=== PATIENT | female | born 1995 | race Caucasian/White ===

== ENCOUNTER 2017-06-25 14:57 | Outpatient (CLI) | payer OTHER ==
[2017-06-25 15:38] LABS: BILIRUBIN,URINE NEGATIVE (NEGATIVE); GLUCOSE, URINE (UA) NEGATIVE (NEGATIVE); KETONES,URINE (UA) NEGATIVE (NEGATIVE); LEUKOCYTE ESTERASE, URINE NEGATIVE (NEGATIVE); NITRITE,URINE NEGATIVE (NEGATIVE); OCCULT BLOOD,URINE TRACE-INTA (NEGATIVE); PROTEIN,URINE NEGATIVE (NEGATIVE); UROBILINOGEN,URINE 0.2 (NORMAL) E.U./dL (NORMAL)
[2017-06-25 15:42] LABS: CLARITY,URINE HAZY (CLEAR)
[2017-06-25 15:51] VITALS: BP 122/82
[2017-06-25 16:00] LABS: AMORPHOUS SEDIMENT,UR Moderate /LPF; BACTERIA,URINE Rare /HPF (None Seen); RBC,URINE 0-5 /HPF (0-5); SQUAMOUS EPITHELIAL CELL,UR MOD Squamous (<= Few)
== END 2017-06-25 16:30 | disposition home or self-care (01) ==
LOC: WFO 14:57 → FBP 15:00 → WFO 16:30
PROVIDERS: ATTEND Obstetrics & Gynecology
DX: O99.89 Other specified diseases and conditions complicating pregnancy, childbirth and the puerperium (principal); R10.9 Unspecified abdominal pain; Z3A.23 23 weeks gestation of pregnancy
CPT/HCPCS: 81001; 81003; 87086; 99212

== ENCOUNTER 2017-08-26 08:15 | Outpatient (CLI) | payer OTHER ==
[2017-08-26 09:03] LABS: BILIRUBIN,URINE NEGATIVE (NEGATIVE); GLUCOSE, URINE (UA) NEGATIVE (NEGATIVE); KETONES,URINE (UA) NEGATIVE (NEGATIVE); LEUKOCYTE ESTERASE, URINE NEGATIVE (NEGATIVE); NITRITE,URINE NEGATIVE (NEGATIVE); OCCULT BLOOD,URINE NEGATIVE (NEGATIVE); PH,URINE 8.5 PH (5.0-7.5); PROTEIN,URINE NEGATIVE (NEGATIVE); UROBILINOGEN,URINE 0.2 (NORMAL) E.U./dL (NORMAL)
[2017-08-26 09:16] LABS: BACTERIA,URINE None Seen /HPF (None Seen); CLARITY,URINE HAZY (CLEAR); RBC,URINE 0-5 /HPF (0-5); SQUAMOUS EPITHELIAL CELL,UR MOD Squamous (<= Few)
[2017-08-26 09:17] LABS: MUCUS,URINE Few Strands
[2017-08-26 09:18] LABS: AMORPHOUS SEDIMENT,UR Moderate /LPF
[2017-08-26 10:01] VITALS: BP 104/72
== END 2017-08-26 10:00 | disposition home or self-care (01) ==
LOC: WFO 08:15 → FBP 08:17 → WFO 10:00
PROVIDERS: ATTEND Obstetrics & Gynecology
DX: O46.93 Antepartum hemorrhage, unspecified, third trimester (principal); Z3A.32 32 weeks gestation of pregnancy
CPT/HCPCS: 81001; 87086; 87210; 87220; 87480; 87491; 87510; 87591; 87660; 99213

== ENCOUNTER 2017-09-22 13:38 | Outpatient (CLI) | payer OTHER | END 2017-09-22 13:39 | disposition home or self-care (01) | LOC: LAB.R 13:38 | PROVIDERS: ATTEND Nurse Practitioner Obstetrics & Gynecology | DX: Z36.85 Encounter for antenatal screening for Streptococcus B (principal) | CPT/HCPCS: 87081 ==

== ENCOUNTER 2017-10-04 20:13 | Outpatient (CLI) | payer OTHER ==
[2017-10-04 20:39] VITALS: BP 123/80
== END 2017-10-04 21:15 | disposition home or self-care (01) ==
LOC: WFO 20:13 → FBP 20:14 → WFO 21:15
PROVIDERS: ATTEND Obstetrics & Gynecology
DX: O36.8130 Decreased fetal movements, third trimester, not applicable or unspecified (principal); Z3A.38 38 weeks gestation of pregnancy
CPT/HCPCS: 59025

== ENCOUNTER 2017-10-09 09:17 | Outpatient (CLI) | payer OTHER ==
--- NOTE | 2017-10-09 15:28 | Ultrasound Report ---
OB ULTRASOUND: 10/09/2017 CLINICAL INDICATION: macrosomia. TECHNIQUE: Real-time scanning was performed with marketing sales representative static images obtained. LAST MENSTRUAL PERIOD: 01/11/2017 Clinical Age: 38 weeks 5 days US Age: 38 weeks 4 days EFW Hadlock: 3561 grams EFW% Hadlock: 68% Heart Rate: 139 bpm EDC: 10/18/2017 US EDC: 10/19/2017 BPD Hadlock: 37 weeks 4 days; Mean mm 92 HC Hadlock: 39 weeks 1 day; Mean mm 340 AC Hadlock: 38 weeks 6 days; Mean mm 348 FL Hadlock: 38 weeks 5 days; Mean mm 75 Presentation: cephalic Placental Location: posterior Cervical Length: 3.2 cm Amniotic Fluid: EWA 19.8 cm; MVP 6.6 cm FINDINGS There is a single viable intrauterine gestation, in cephalic presentation. heart rate is 139 BPM. The placenta is posterior, without evidence of previa. Amniotic fluid volume is normal, with an EWA of 19.8. By size, the fetus measures 38 weeks 4 days (38 weeks 5 days by dating provided by the patient). Estimated weight by Hadlock method is 3561 grams, 68th percentile. No free fluid or adnexal lesion is appreciated. IMPRESSION: SINGLE VIABLE INTRAUTERINE GESTATION, WITH SIZE IN KEEPING WITH PROVIDED DATING. ESTIMATED WEIGHT OF 3561 GRAMS, 68TH PERCENTILE. TD: 10/09/2017 11:39 MTDD
== END 2017-10-09 09:18 | disposition home or self-care (01) ==
LOC: DI 09:17
PROVIDERS: ATTEND Obstetrics & Gynecology
DX: Z36.88 Encounter for antenatal screening for fetal macrosomia (principal)
CPT/HCPCS: 76816

== ENCOUNTER 2017-10-13 14:10 | Outpatient (CLI) | payer OTHER ==
[2017-10-13 15:20] VITALS: BP 115/82
--- NOTE | 2017-10-13 16:07 | PROVIDER PROGRESS NOTE ---
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 Also c/o Right SI joint and low back pain and interested in OMT. No contraindications to above. O: VSS/AF RNST with no regular ux contractions, primarily has irritability, Category 1 tracing, single mild contraction documented. Cx 3/50/-3/VTX/BOWI MS: + Right SI joint pain illicited on exam. A/P: No labor. Labor and FKC precautions. F/U routine ob as scheduled. RNST See OMT note below. (OMT Note) Exam: CERVICAL: C3 RR, C1-2 and C4-7 RL THORACIC: SD T1-7 LUMBAR: L3-5 RR PELVIS: R Inominate Anterior Treatment: CERVICAL: HVLA THORACIC: HVLA LUMBAR: HVLA RIGHT INOMINATE: MUSCLE ENERGY RESULTS: SI joint pain and low back pain resolved, marked improvement in thoracic and cervical spine. F/U routine ob as scheduled. Objective - Vital Signs/Intake & Output Vital Signs: Vital Signs x48h Temp Pulse Resp BP Pulse Ox 10/13/17 15:13 36.8 C 97 16 115/82 H 99
== END 2017-10-13 16:00 | disposition home or self-care (01) ==
LOC: WFO 14:10 → FBP 14:11 → WFO 16:00
PROVIDERS: ATTEND Obstetrics & Gynecology
DX: O99.89 Other specified diseases and conditions complicating pregnancy, childbirth and the puerperium (principal); Z3A.39 39 weeks gestation of pregnancy; M79.1 Myalgia
CPT/HCPCS: 99212

== ENCOUNTER 2017-10-16 21:14 | Outpatient (CLI) | payer OTHER ==
[2017-10-16 22:30] VITALS: BP 119/84
--- NOTE | 2017-10-16 22:35 | PROVIDER PROGRESS NOTE ---
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 O: VSS/AF Category 1 tracing, with no contractions on monitor Cx 3/50/-3/VTX/BOWI A/P: Contractions at home, not in labor Labor and FKC precautions F/U Routine ob as scheduled, sooner prn. Objective - Vital Signs/Intake & Output Vital Signs: Vital Signs x48h Temp Pulse Resp BP Pulse Ox 10/16/17 21:35 36.3 C L 20 119/84 H 97 10/16/17 21:30 37.2 C 96 24 120/78 95
== END 2017-10-16 22:36 | disposition home or self-care (01) ==
LOC: WFO 21:14 → FBP 21:15 → WFO 22:36
PROVIDERS: ATTEND Obstetrics & Gynecology
DX: O62.9 Abnormality of forces of labor, unspecified (principal); Z3A.00 Weeks of gestation of pregnancy not specified
CPT/HCPCS: 99213

== ENCOUNTER 2017-10-18 19:53 | Inpatient (IN) | payer OTHER ==
[2017-10-18 20:27] LABS: RUPTURE OF MEMBRANES PLUS POSITIVE (NEGATIVE)
[2017-10-18] MEDS ORDERED: fentaNYL 100 MCG/2 ML VIAL IVP PRN (21:38)
[2017-10-18] MEDS ORDERED: SODIUM CHLORIDE FLUSH 0.9% 10 ML SYRINGE IVP PRN (21:38)
--- NOTE | 2017-10-18 22:02 | HISTORY & PHYSICAL EXAMINATION ---
Chief Complaint - Chief Complaint Chief Complaint: LEAKAGE OF FLUID History of Present Illness - Admitted From Admitted From:: HOME TO [facility] - History Obtained From Records Reviewed: YES History obtained from: PATIENT Exam Limitations: NONE - History of Present Illness HPI Comment/Other: 22 y.o. EDC 10/18/17 40 0/7 weeks with SROM clear at 1855 hours today, with infrequent and mild contractions and CX exam 4/50/BLT/VTX with +forebag and + ROM test and pooling of fluid on bed with clear fluid, admitted for delivery, GBS Neg. PNC Unremarkable PMH: Neg PSH: wisdom teeth, and one other dental removal procedure. SHx: Neg for smoking/etoh/drugs Meds: PNV Allergy: KNDA Labs from OB records: 1 hr gtt 76 RPR NR GC/CT Neg x 2 MBT O Neg PNAS Neg HBSAG Neg Rubella Pos HIV Neg History - Past Medical History Other Past Medical History: NEG - Past Surgical History Other past surgical history: WISDOM TEETH. ONE ADDITIONAL ORAL DENTAL REMOVAL PROCEDURE - Substance History Use: Uses substance without health or social issues: NONE Abuse: Recurrent use of substance despite neg consequences: NONE - POLST POLST Status: Full Code Meds/Allgy - Allergies Allergies/Adverse Reactions: Allergies Allergy/AdvReac Type Severity Reaction Status Date / Time No Known Drug Allergies Allergy Verified 06/25/17 15:58 Review of Systems - All Other Systems All Other Systems: reports: Reviewed and negative (NEGATIVE FOR ALL 14 SYSTEMS ABOVE.) Exam - Vital Signs Vital Signs: Vital Signs x48h Temp Pulse Resp BP Pulse Ox 10/18/17 20:08 37 C 102 H 18 133/89 H 99 - Physical Exam General Appearance: positive: No acute distress, Alert Eyes Bilateral: positive: Normal inspection, PERRL ENT: positive: ENT inspection nml Neck: positive: Nml inspection Respiratory: positive: Chest non-tender, No respiratory distress, Breath sounds nml Cardiovascular: positive: Regular rate & rhythm, No murmur Peripheral Pulses: positive: 2+ Back: positive: Nml inspection Skin: positive: Color nml, No rash, Warm Extremities: positive: Non-tender, Full ROM (CX 4/50/BLT/VTX RNST CATEGORY 1 TRACING, WITH OCCASIONAL MILD CONTRACTION) Core Measures - Anticipated LOS I expect patient to be DC'd or transferred within 96 hours.: Yes - Issues Hospital Issues and Management Plan: IMPRESSION/PLAN: 22 yo 40 0/7 weeks with SROM clear 1855 hours today, Cx 4/50/BLT/VTX and occasional contraction, GBS Neg, Category 1 tracing. Admit for delivery and pitocin augmentation Fentanyl and epidural prn Rhogam candidate Routine admission orders otherwise. - DVT/VTE - Prophylaxis VTE/DVT Device ordered at admit?: No
[2017-10-18 22:07] LABS: BASOPHILS # (AUTO) 0.1 10^3/uL (0.0-0.1); BASOPHILS % (AUTO) 0.7 %; EOSINOPHILS # (AUTO) 0.1 10^3/uL (0.0-0.7); EOSINOPHILS % (AUTO) 0.5 %; HGB - HEMOGLOBIN 11.7 g/dL (12.0-16.0); LYMPHOCYTES # (AUTO) 2.7 10^3/uL (1.5-3.5); LYMPHOCYTES % (AUTO) 18.5 %; MEAN CORPUSCULAR HGB CONC 32.7 g/dL (32.0-36.0); MEAN CORPUSCULAR VOLUME 82.5 fL (81.0-99.0); MEAN PLATELET VOLUME 9.8 fL (7.9-10.8); MONOCYTES # (AUTO) 0.9 10^3/uL (0.0-1.0); MONOCYTES % (AUTO) 6.3 %; NEUTROPHILS # (AUTO) 10.9 10^3/uL (1.5-6.6); PLT - PLATELET COUNT 179 10^3/uL (130-450); RED BLOOD COUNT 4.33 10^6/uL (4.20-5.40); RED CELL DISTRIBUTION WIDTH 13.8 % (12.0-15.0); WHITE BLOOD COUNT 14.8 x10^3/uL (4.8-10.8)
[2017-10-18] MEDS ORDERED: OXYTOCIN/SODIUM CHLORIDE 500 ML IV SCH (23:00)
[2017-10-18] MEDS: LACTATED RINGERS 1,000 ML IV SCH (23:20)
[2017-10-18] MEDS ORDERED: diphenhydrAMINE 25 MG CAPSULE PO PRN (23:57)
[2017-10-19] MEDS ORDERED: SODIUM CHLORIDE FLUSH 0.9% 10 ML SYRINGE IVP SCH (01:00)
[2017-10-19] MEDS ORDERED: ONDANSETRON 4 MG/2 ML VIAL IVP PRN ×2 (02:24→07:26)
[2017-10-19] MEDS ORDERED: fent/BUPIV 2 MCG/0.125% 250 ML EP ONE (02:28)
[2017-10-19] MEDS: LACTATED RINGERS 1,000 ML IV SCH (02:30)
[2017-10-19] MEDS ORDERED: TERBUTALINE 1 MG/ML VIAL SUBQ ONE (04:52)
[2017-10-19] MEDS ORDERED: LIDOCAINE 1% 50 ML MDV ONE (06:58)
[2017-10-19] MEDS ORDERED: OXYTOCIN/SODIUM CHLORIDE 250 ML IV ONE (07:26)
[2017-10-19] MEDS ORDERED: WITCH HAZEL/GLYCERIN 1 EACH MED..PAD TOP PRN (07:26)
[2017-10-19] MEDS ORDERED: RHO(D) IMMUNE GLOBULIN 300 MCG SYRINGE IM ONE (07:26)
[2017-10-19] MEDS ORDERED: MAGNESIUM HYDROXIDE 2,400 MG/30 ML UDC PO PRN (07:26)
[2017-10-19] MEDS ORDERED: METHYLERGONOVINE 0.2 MG/ML AMP IM PRN (07:26)
[2017-10-19] MEDS ORDERED: MEASLES,MUMPS & RUBELLA VACC 0.5 ML VIAL SUBQ ONE (07:26)
[2017-10-19] MEDS ORDERED: TETANUS/DIPHTHERIA/PERTUSSIS 0.5 ML SYRINGE IM ONE (07:26)
--- NOTE | 2017-10-19 07:38 | PROVIDER PROGRESS NOTE ---
Subjective - Prog Note Date Prog Note Date: 10/19/17 Prog Note Time: 07:31 - Subjective Subjective: DELIVERY NOTE: Patient progressed to C/C/+2 at 0504 while off pitocin and with epidural. Ho removed. Patient delivered at 0617 viable 7# 14.1 onz female with 8/9 at 0617 hours. Baby placed on maternal abdomen, cord clamped x 2 and cut after 1 minute. IV pitocin then started, placenta delivered sponteously at 0623. Patient underwent exam of cervix and vagina. Noted to have BL 3" PUL and small 1st degree perineal lac. Local ANS used to repairs lacs. PULs repaired with single running 3-0 monocryl. Perineal lac repaired with 3-0 vicryl in layers/ routine fashion. EBL 400 mL. Mother and baby doing well. SBAR to Dr. 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 Objective - Vital Signs/Intake & Output Intake & Output: Intake & Output 10/16/17 10/17/17 10/18/17 10/19/17 23:59 23:59 23:59 23:59 Intake Total 395.833 Balance 395.833 - Lab Results Fish Bones: 10/18/17 21:57 Other Labs: Lab Results x24hrs 10/18/17 10/18/17 Range/Units 21:57 20:15 WBC 14.8 H (4.8-10.8) x10^3/uL RBC 4.33 (4.20-5.40) 10^6/uL Hgb 11.7 L (12.0-16.0) g/dL Hct 35.7 L (37.0-47.0) % MCV 82.5 (81.0-99.0) fL MCH 27.0 (27.0-31.0) pg MCHC 32.7 (32.0-36.0) g/dL RDW 13.8 (12.0-15.0) % Plt Count 179 (130-450) 10^3/uL MPV 9.8 (7.9-10.8) fL Neut # (Auto) 10.9 H (1.5-6.6) 10^3/uL Lymph # (Auto) 2.7 (1.5-3.5) 10^3/uL [place] # (Auto) 0.9 (0.0-1.0) 10^3/uL Eos # (Auto) 0.1 (0.0-0.7) 10^3/uL Baso # (Auto) 0.1 (0.0-0.1) 10^3/uL Absolute Nucleated RBC 0.00 x10^3/uL Nucleated RBC % 0.0 /100WBC Membranes Rupture POSITIVE A (NEGATIVE)
[2017-10-19] MEDS ORDERED: LACTATED RINGERS 1,000 ML IV SCH (08:00)
[2017-10-19] MEDS: HYDROCORTISONE/PRAMOXINE 10 GM PR PRN (08:26)
[2017-10-19] MEDS: ACETAMINOPHEN 325 MG TABLET PO PRN ×2 (08:30→13:39)
[2017-10-19] MEDS: DOCUSATE SODIUM 100 MG CAPSULE PO SCH ×2 (08:30→21:15)
[2017-10-19] MEDS: IBUPROFEN 800 MG TABLET PO SCH ×2 (08:31→16:42)
[2017-10-19] MEDS ORDERED: SODIUM CHLORIDE FLUSH 0.9% 10 ML SYRINGE ONE (10:14)
--- NOTE | 2017-10-19 13:56 | ANESTHESIA POST OP EVALUATION ---
Anesthesia Post Eval - Post Anesthesia Eval CV Function Including HR & BP: positive: Stable : : : Pain Control: positive: Adequate Nausea & Vomiting: positive: Negative : Mental Status: positive: Appropriate Anesthesia Complications: positive: None, Other (Patient walking w/o difficulty , return of full motor and sensory. Reports she had good pain control with labor. No apparent anestheisa complications.)
[2017-10-19] MEDS: oxyCOD/ACETAMIN 5 MG/325 MG TABLET PO PRN (21:15)
[2017-10-20] MEDS: IBUPROFEN 800 MG TABLET PO SCH ×3 (01:20→17:12)
[2017-10-20] MEDS: oxyCOD/ACETAMIN 5 MG/325 MG TABLET PO PRN (04:23)
[2017-10-20 05:54] LABS: BASOPHILS % (AUTO) 0.2 %; EOSINOPHILS % (AUTO) 0.5 %; HGB - HEMOGLOBIN 9.9 g/dL (12.0-16.0); LYMPHOCYTES # (AUTO) 2.4 10^3/uL (1.5-3.5); LYMPHOCYTES % (AUTO) 24.8 %; MEAN CORPUSCULAR HEMOGLOBIN 27.3 pg (27.0-31.0); MEAN CORPUSCULAR HGB CONC 32.2 g/dL (32.0-36.0); MEAN CORPUSCULAR VOLUME 84.6 fL (81.0-99.0); MEAN PLATELET VOLUME 9.8 fL (7.9-10.8); MONOCYTES # (AUTO) 0.7 10^3/uL (0.0-1.0); MONOCYTES % (AUTO) 7.3 %; NEUTROPHILS # (AUTO) 6.5 10^3/uL (1.5-6.6); NEUTROPHILS % (AUTO) 67.2 %; PLT - PLATELET COUNT 134 10^3/uL (130-450); RED BLOOD COUNT 3.63 10^6/uL (4.20-5.40); RED CELL DISTRIBUTION WIDTH 13.8 % (12.0-15.0); WHITE BLOOD COUNT 9.7 x10^3/uL (4.8-10.8)
--- NOTE | 2017-10-20 08:22 | PROVIDER PROGRESS NOTE ---
Subjective - Prog Note Date Prog Note Date: 10/20/17 Prog Note Time: 08:18 - Subjective Pt reports feeling: Improved Subjective: Patient is feeling much better. Reports pain is controlled with percocet. Denies prior use of vicodin. Ambulating and tolerating a regular diet. Urinating without difficulty. Vaginal bleeding improving, heavy menses. Patient worried about breast feeding. Was having issues with latching and SNS was done yesterday. Tearful about going home and not having help. 's mom and dad coming in to help and will arrive tonight. Objective - Vital Signs/Intake & Output Reviewed Vital Signs: Yes Vital Signs: Vital Signs x48h Temp Pulse Resp BP Pulse Ox 10/20/17 03:48 97.9 F 85 16 104/61 99 Intake & Output: Intake & Output 10/17/17 10/18/17 10/19/17 10/20/17 23:59 23:59 23:59 23:59 Intake Total 2297.133 Output Total 1500 Balance 797.133 - Objective General Appearance: positive: No acute distress Eyes Bilateral: positive: Normal inspection Abdomen: positive: Non-tender (Firm fundus, benign abdomen) Neurologic/Psychiatric: positive: Oriented x3, Other (Anxious affect) - Lab Results Fish Bones: 10/20/17 05:36 Other Labs: Lab Results x24hrs 10/20/17 Range/Units 05:36 WBC 9.7 (4.8-10.8) x10^3/uL RBC 3.63 L (4.20-5.40) 10^6/uL Hgb 9.9 L (12.0-16.0) g/dL Hct 30.7 L (37.0-47.0) % MCV 84.6 (81.0-99.0) fL MCH 27.3 (27.0-31.0) pg MCHC 32.2 (32.0-36.0) g/dL RDW 13.8 (12.0-15.0) % Plt Count 134 (130-450) 10^3/uL MPV 9.8 (7.9-10.8) fL Neut # (Auto) 6.5 (1.5-6.6) 10^3/uL Lymph # (Auto) 2.4 (1.5-3.5) 10^3/uL [place] # (Auto) 0.7 (0.0-1.0) 10^3/uL Eos # (Auto) 0.0 (0.0-0.7) 10^3/uL Baso # (Auto) 0.0 (0.0-0.1) 10^3/uL Absolute Nucleated RBC 0.00 x10^3/uL Nucleated RBC % 0.0 /100WBC Assessment/Plan - Problem List (1) Vaginal delivery Impression: 22 yo S/p 10/19/2017, PPD #1 Normal recovery Difficulty with breast feeding Rh negative-- RhoGam Will change percocet to vicodin consult Routine care Anticipate discharge to home 10/21/2017
[2017-10-20] MEDS: DOCUSATE SODIUM 100 MG CAPSULE PO SCH ×2 (08:50→20:06)
[2017-10-20] MEDS: ACETAMINOPHEN 325 MG TABLET PO PRN (08:50)
[2017-10-20] MEDS: HYDROcod/ACETAM 5/325 MG TABLET PO SCH ×2 (15:26→20:06)
[2017-10-20] MEDS: HYDROCORTISONE/PRAMOXINE 10 GM PR PRN (17:12)
[2017-10-21] MEDS: HYDROcod/ACETAM 5/325 MG TABLET PO SCH ×3 (00:06→11:45)
[2017-10-21] MEDS: IBUPROFEN 800 MG TABLET PO SCH ×2 (00:51→11:44)
[2017-10-21 09:36] VITALS: BP 126/86
[2017-10-21] MEDS: DOCUSATE SODIUM 100 MG CAPSULE PO SCH (11:45)
--- NOTE | 2017-10-21 12:01 | Discharge Plan ---
Discharge Plan Disposition: 01 Home, Self Care Condition: Stable Diet: Regular Activity Restrictions: Activity as Tolerated Shower Restrictions: No Driving Restrictions: No Weight Bearing: Full Weight No Smoking: If you smoke, Please STOP! Call for help. Follow-up with: Bruce Sterling MD [Provider Admit Priv/Credential] -
--- NOTE | 2017-10-21 12:37 | Labor Flowsheet ---
Labor Flowsheet Datetime Report Generated by CPN: 10/21/2017 12:37 Datetime: 10/20/2017 20:16 VITAL SIGNS NBP Sys/Magdalene/Mean (mmHg): 112 : 70 : 80 Pulse: 75 Datetime: 10/19/2017 07:45 SpO2 (%): 99 Datetime: 10/19/2017 06:23 Stage of : Datetime: 10/19/2017 06:17 Stage 2 Comments: head delivered Datetime: 10/19/2017 06:15 LaborFlag: Labor Datetime: 10/19/2017 06:00 UTERINE ACTIVITY Monitor Mode: External Frequency (min): 2-3 Quality: Strong Duration (sec): 50-80 Pattern: Normal: <= 5 Contractions in 10 Minutes Resting Tone (Palpate): Relaxed ASSESSMENT A Monitor Mode: Telemetry FHR Baseline Rate : 135 Variability: Moderate 6-25 bpm Accelerations: 15X15 Decelerations: Variable Category: Category II Oxygen Method: Room Air Datetime: 10/19/2017 05:14 STAGE 2 Pushing: Coached on Pushing; No Urge to Push Pushing Position: Pushing with Contractions Pushing Progress: Descent with Pushing Datetime: 10/19/2017 05:09 Patient Care Comments: 425 ml UO Datetime: 10/19/2017 05:07 I/O Interventions: Ho Discontinued Datetime: 10/19/2017 05:04 VAGINAL EXAM Dilatation (cm): 10.0 Effacement (%): 100 Station: 3 Exam by: Dr. Amina Datetime: 10/19/2017 04:38 COMMUNICATION Communication: Call/Page Placed to Provider Provider Notified (Name): Dr. Amina Datetime: 10/19/2017 04:37 MEDICATIONS Pitocin (milliunits): Discontinued PATIENT CARE IV/Blood Work: IV Bolus Started Oxygen Amount (LPM): 10 Datetime: 10/19/2017 04:30 Pitocin Checklist: At Least 1 Acceleration of 15 bpm x 15 Seconds in 30 Minutes or Adequate Variabi lity; No More than 2 Variable Decelerations > 60 Seconds in Duration and decreasing >60 bpm in 30 min utes; No More than 5 Uterine Contractions in 10 Minutes for any 20 Minute Interval; Uterus Palpates S oft between Contractions Datetime: 10/19/2017 04:28 Patient Position/Activity: Right Lateral Datetime: 10/19/2017 04:14 Vaginal Bleeding: Normal Show Cervix, Consistency: Soft Datetime: 10/19/2017 04:01 Monitor Interventions for FHR: 2-4 Datetime: 10/19/2017 03:08 Anesthesia Level Check: T9 Datetime: 10/19/2017 02:37 ANESTHESIA Anesthesia Plans: Epidural Epidural Positioning: Sitting Epidural Procedure: Test Dose Datetime: 10/19/2017 02:32 Anesthesia Comments: local anesthetic administered Datetime: 10/19/2017 02:20 PROCEDURE TIME OUT Procedure Verify: Correct Patient Identity; Correct Side and Site are Marked; Accurate Procedure Co nsent Form; Agreement on Procedure to be Done; Correct Patient Position; Safety Precautions Based on Patient History or Medication Use Datetime: 10/19/2017 00:59 MATERNAL ASSESSMENT Nausea/Vomiting: Present Datetime: 10/19/2017 00:38 PAIN Pain Scale: 5 Pain Presence: Intermittent Pain Type: Contraction Pain Location: Abdomen Pain Coping: Breathing Through Contractions Datetime: 10/19/2017 00:25 Hygiene: Peripad Changed Datetime: 10/18/2017 23:26 Temperature (C): 36.5
--- NOTE | 2017-10-21 13:05 | DISCHARGE SUMMARY ---
Physician: Bruce Sterling MD DATE OF ADMISSION: 10/18/2017 DATE OF DISCHARGE: 10/21/2017 DIAGNOSES 1. A 40-week gestation, in labor. 2. Spontaneous rupture of membranes. 3. Maternal blood type Rh negative. 4. Nuchal cord not a factor in delivery. PROCEDURE: Vaginal delivery of a living female , (Dr. Argueta) COMPLICATIONS: None. HISTORY: The patient is a 22-year-old primigravida at 40 weeks' gestation, based by dates and ultrasound, who presented with rupture of membranes at 1855 hours on the day of admission. There were mild contractions and initial cervical exam was 4 cm, 50%, and vertex. GBS status was negative. Maternal Rh is also known to be negative. HOSPITAL COURSE: The patient was admitted with a category 1 tracing. Pitocin was begun for augmentation. The patient did not require Pitocin and progressed to complete by 0504 hours. At 0617 hours, a living female infant was born with Apgars of 8/9, weighing 7 pounds 14 ounces. Placenta was delivered intact. There was only a minor first-degree perineal laceration, which was uneventfully repaired. Total blood loss 400. Patient recovered well from delivery and rapidly advanced to full diet and activity. She nursed well and had no difficulty with self or infant care. She was eager to be discharged on the morning of the . blood type Rh-; therefore, RhoGam not required. Complete discharge warning sign, and callback instructions were reviewed. MEDICATIONS: The patient's pain was well controlled with acetaminophen alone, and she declines ibuprofen or [place]. FOLLOWUP: At [facility] 2 weeks and 8 weeks. TD: 10/21/2017 12:06 YNES
== END 2017-10-21 12:00 | disposition home or self-care (01) | DRG 775 ==
LOC: FBP 19:53 → WFO 19:53 → FBP 21:38
PROVIDERS: ADMIT Obstetrics & Gynecology; ATTEND Obstetrics & Gynecology
PROC: 10E0XZZ Delivery of Products of Conception, External Approach (ICD-10-PCS; principal; 2017-10-19)
PROC: 0HQ9XZZ Repair Perineum Skin, External Approach (ICD-10-PCS; 2017-10-19)
DX: O26.893 Other specified pregnancy related conditions, third trimester (principal); O70.0 First degree perineal laceration during delivery; Z67.41 Type O blood, Rh negative; Z3A.40 40 weeks gestation of pregnancy; Z37.0 Single live birth
CPT/HCPCS: 36415; 84112; 85025; 99213